=== PATIENT | male | born 1975 | race Two or more races ===

== ENCOUNTER → 2019-06-26 05:07 | Emergency (ER) | payer MEDICAID, OTHER ==
[~2019-06-26] VITALS: Ht 167.6 cm; Wt 76.2 kg
[~2019-06-26 05:07] MED LIST: FOLIC ACID 1 MG, MULTIPLE VITAMIN 10 ML, MAGNESIUM SULF SDV 50% 8 MEQ, THIAMINE INJ 100... INJ SCH; LORazepam 2MG/ML-1ML VIAL IV ONE; SODIUM CHLORIDE 0.9% 1,000 ML IV ONE
[2019-06-26 06:23] LABS: Hemoglobin 14.7 g/dL (13.5-17.5); Mean Corpuscular Hemoglobin 33.9 pg (28.0-32.0); Mean Corpuscular Hgb Conc. 35.7 g/dL (32.0-36.0); Mean Corpuscular Volume 94.9 fL (80.0-100.0); Platelet Count (auto) 95 10^3/uL (140-450); Red Blood Cells 4.32 10^6/uL (4.5-5.90); Red Cell Distribution Width 13.8 % (11.8-14.3); White Blood Cell 7.6 10^3/uL (4.4-10.8)
[2019-06-26 06:29] LABS: Alcohol, Urine < 3.0 mg/dL (0-5); Amphetamine Screen, Urine NEGATIVE (NEGATIVE); Barbiturate Scree,Urine NEGATIVE (NEGATIVE); Benzodiazephine Screen, Urine NEGATIVE (NEGATIVE); Cannabinoid Screen, Urine NEGATIVE (NEGATIVE); Cocaine Screen, Urine NEGATIVE (NEGATIVE); Opiate Scree,Urine NEGATIVE (NEGATIVE); Phencyclidine Screen, Urine NEGATIVE (NEGATIVE); Urine Bacteria FEW /hpf (None Seen); Urine Blood TRACE /uL (Negative); Urine Mucus FEW (None Seen); Urine Specific Gravity 1.008 (1.001-1.035); Urine WBC 1 /hpf (0 - 3)
[2019-06-26 06:37] LABS: Acetaminophen < 2.0 ug/mL (10-30); Salicylate < 0.2 mg/dL (2.8-20.0)
[2019-06-26 06:39] LABS: Albumin 4.3 g/dL (3.4-5.0); Anion Gap 8 (5-15); Basophils % (manual) 0 (0.0-2.0); Blast Cells 0; Blood Urea Nitrogen 13 mg/dL (7-18); Calcium 9.8 mg/dL (8.5-10.1); Carbon Dioxide 25 mmol/L (21-32); Chloride 104 mmol/L (98-107); Glucose 77 mg/dL (74-106); Potassium 3.2 mmol/L (3.5-5.1); Promyelocytes % 0; Reactive Lymphocytes 0; Sodium 137 mmol/L (136-145)
[2019-06-26 06:44] LABS: Alanine Aminotransferase 136 U/L (16-61); Alkaline Phosphatase 221 U/L (45-117); Aspartate Aminotransferase 203 U/L (15-37); Bilirubin, Total 3.8 mg/dL (0.2-1.0); Blood Alcohol < 3.0 mg/dL (0-5); GFR African American 134 mL/min; GFR Non-African American 111 mL/min; Total Protein 9.1 g/dL (6.4-8.2)
[2019-06-26 11:08] LABS: Band Neutrophils % (manual) 3; Eosinophils % (manual) 1 (0-7); Lymphocytes % (manual) 4 (10.0-50.0); Monocytes % (manual) 19 (0-12)
[2019-06-26 11:09] LABS: Metamyelocytes % 1; Myelocytes % 2
[2019-06-26 16:15] VITALS: BP 120/76
== END | disposition home or self-care (01) ==
LOC: ER 05:07
DX: F10.239 Alcohol dependence with withdrawal, unspecified (principal); E87.6 Hypokalemia; E72.20 Disorder of urea cycle metabolism, unspecified; R94.5 Abnormal results of liver function studies; Y90.1 Blood alcohol level of 20-39 mg/100 ml
CPT/HCPCS: 36415; 71046; 80053; 80307; 80320; 80329; 81001; 82140; 83735; 85007; 85027; 93005; 96361; 96365; 96375; 99284; J2060; J3411; J3475; J7030

== ENCOUNTER 2019-06-27 01:09 | Emergency (ER) | payer MEDICAID ==
[~2019-06-27] VITALS: Ht 167.6 cm; Wt 76.2 kg
[2019-06-27 02:10] LABS: Hematocrit 39.5 % (41.0-53.0); Hemoglobin 13.6 g/dL (13.5-17.5); Mean Corpuscular Hgb Conc. 34.5 g/dL (32.0-36.0); Mean Corpuscular Volume 95.5 fL (80.0-100.0); Platelet Count (auto) 97 10^3/uL (140-450); Red Blood Cells 4.13 10^6/uL (4.5-5.90); Red Cell Distribution Width 13.9 % (11.8-14.3); White Blood Cell 5.6 10^3/uL (4.4-10.8)
[2019-06-27 02:27] LABS: Albumin 3.4 g/dL (3.4-5.0); BUN/Creatinine Ratio 12.2; Calcium 8.3 mg/dL (8.5-10.1)
[2019-06-27 02:30] LABS: Bilirubin, Total 3.7 mg/dL (0.2-1.0)
[2019-06-27 02:37] LABS: Basophils % (manual) 0 (0.0-2.0); Blast Cells 0; Promyelocytes % 0; Reactive Lymphocytes 0
[2019-06-27 03:13] LABS: Eosinophils % (manual) 4 (0-7); Lymphocytes % (manual) 17 (10.0-50.0); Monocytes % (manual) 11 (0-12)
[2019-06-27 03:14] LABS: Band Neutrophils % (manual) 6; Metamyelocytes % 1; Myelocytes % 1
[2019-06-27 04:00] VITALS: BP 114/77
[2019-06-27 04:01] LABS: Alcohol, Urine < 3.0 mg/dL (0-5); Amphetamine Screen, Urine NEGATIVE (NEGATIVE); Barbiturate Scree,Urine NEGATIVE (NEGATIVE); Benzodiazephine Screen, Urine NEGATIVE (NEGATIVE); Cannabinoid Screen, Urine NEGATIVE (NEGATIVE); Cocaine Screen, Urine NEGATIVE (NEGATIVE); Opiate Scree,Urine NEGATIVE (NEGATIVE); Phencyclidine Screen, Urine NEGATIVE (NEGATIVE)
[2019-06-27] MEDS ORDERED: FAMOTIDINE (10MG/ML) 2ML VL IV ONE (04:15)
[2019-06-27] MEDS ORDERED: LORazepam 2MG/ML-1ML VIAL IV ONE (04:15)
== END 2019-06-27 04:41 | disposition home or self-care (01) ==
LOC: ER 01:11
DX: K29.00 Acute gastritis without bleeding (principal); R44.3 Hallucinations, unspecified; K72.90 Hepatic failure, unspecified without coma; F10.239 Alcohol dependence with withdrawal, unspecified; F12.10 Cannabis abuse, uncomplicated; Y90.6 Blood alcohol level of 120-199 mg/100 ml
CPT/HCPCS: 36415; 80053; 80307; 85007; 85027; 93005; 96374; 96375; 99284; J2060; J3490

== ENCOUNTER 2019-07-14 18:02 | Emergency (ER) | payer MEDICAID ==
[~2019-07-14] VITALS: Ht 152.4 cm; Wt 74.8 kg
[2019-07-14 20:58] VITALS: BP 129/70
[2019-07-14] MEDS ORDERED: diphenhdrAMINE HCL 50 MG/1 ML VL IM ONE (21:45)
[2019-07-14] MEDS ORDERED: DexAMETHasone SOD PHOS 10MG/1ML VIAL INJ IM ONE (21:45)
== END 2019-07-14 22:10 | disposition home or self-care (01) ==
LOC: ER 18:02
DX: T78.40XA Allergy, unspecified, initial encounter (principal); X58.XXXA Exposure to other specified factors, initial encounter
CPT/HCPCS: 96372; 99283; J1100; J1200